=== PATIENT | female | born 2000 | race African-American/Black ===

== ENCOUNTER 2018-04-18 20:54 | Outpatient (CLI) | payer OTHER ==
[2018-04-18] MEDS ORDERED: LACTATED RINGERS 1,000 ML IV ONE ×2 (21:52→22:18)
[2018-04-18] MEDS ORDERED: ONDANSETRON 4 MG/2 ML VIAL IVP ONE (22:19)
[2018-04-18 22:35] LABS: BILIRUBIN,URINE NEGATIVE (NEGATIVE); GLUCOSE, URINE (UA) NEGATIVE (NEGATIVE); KETONES,URINE (UA) NEGATIVE (NEGATIVE); LEUKOCYTE ESTERASE, URINE NEGATIVE (NEGATIVE); NITRITE,URINE NEGATIVE (NEGATIVE); OCCULT BLOOD,URINE NEGATIVE (NEGATIVE); PROTEIN,URINE NEGATIVE (NEGATIVE); UROBILINOGEN,URINE 0.2 (NORMAL) E.U./dL (NORMAL)
[2018-04-18 23:04] LABS: BACTERIA,URINE None Seen /HPF (None Seen); CLARITY,URINE CLEAR (CLEAR); RBC,URINE None Seen /HPF (0-5); SQUAMOUS EPITHELIAL CELL,UR MOD Squamous (<= Few)
[2018-04-18 23:15] VITALS: BP 102/48
== END 2018-04-18 23:25 | disposition home or self-care (01) ==
LOC: WFO 20:54 → FBP 20:58 → WFO 23:25
PROVIDERS: ATTEND Obstetrics & Gynecology
DX: O98.819 Other maternal infectious and parasitic diseases complicating pregnancy, unspecified trimester (principal); A08.4 Viral intestinal infection, unspecified
CPT/HCPCS: 81001; 87210; 96374; 99213; J7120; 87086

== ENCOUNTER 2018-06-11 20:32 | Outpatient (CLI) | payer OTHER ==
[2018-06-11 21:47] LABS: BILIRUBIN,URINE NEGATIVE (NEGATIVE); GLUCOSE, URINE (UA) NEGATIVE (NEGATIVE); KETONES,URINE (UA) NEGATIVE (NEGATIVE); LEUKOCYTE ESTERASE, URINE SMALL (NEGATIVE); NITRITE,URINE NEGATIVE (NEGATIVE); OCCULT BLOOD,URINE NEGATIVE (NEGATIVE); PH,URINE 7.5 PH (5.0-7.5); PROTEIN,URINE NEGATIVE (NEGATIVE); UROBILINOGEN,URINE 0.2 (NORMAL) E.U./dL (NORMAL)
[2018-06-11 21:54] LABS: CLARITY,URINE HAZY (CLEAR); RBC,URINE None Seen /HPF (0-5)
[2018-06-11 21:55] LABS: AMORPHOUS SEDIMENT,UR Marked /LPF; BACTERIA,URINE None Seen /HPF (None Seen); SQUAMOUS EPITHELIAL CELL,UR MOD Squamous (<= Few)
[2018-06-11 22:02] VITALS: BP 123/55
== END 2018-06-11 22:15 | disposition home or self-care (01) ==
LOC: FBP 20:32 → WFO 20:32
PROVIDERS: ATTEND Obstetrics & Gynecology
DX: O99.89 Other specified diseases and conditions complicating pregnancy, childbirth and the puerperium (principal); R10.9 Unspecified abdominal pain; Z3A.26 26 weeks gestation of pregnancy
CPT/HCPCS: 59025; 81001; 82731; 87086; 99213

== ENCOUNTER 2018-06-13 10:10 | Outpatient (CLI) | payer OTHER ==
[2018-06-13 16:58] LABS: MUDS CUTOFF CONCENTRATIONS CUTOFF CONC BELOW:
[2018-06-13 17:26] LABS: AMPHETAMINE SCREEN,URINE NEGATIVE (NEGATIVE); BENZODIAZEPINES SCREEN, URINE NEGATIVE (NEGATIVE); COCAINE SCREEN URINE NEGATIVE (NEGATIVE); METHADONE SCREEN, URINE NEGATIVE (NEGATIVE); METHAMPHETAMINES SCREEN, URINE NEGATIVE (NEGATIVE); OPIATE SCREEN, URINE NEGATIVE (NEGATIVE); OXYCODONE SCREEN, URINE NEGATIVE (NEGATIVE); PROPOXYPHENE SCREEN, URINE NEGATIVE (NEGATIVE); TRICYCLIC ANTIDEPRESSANT,URINE NEGATIVE (NEGATIVE)
== END 2018-06-13 10:11 | disposition home or self-care (01) ==
LOC: LAB.R 10:10
PROVIDERS: ATTEND Obstetrics & Gynecology
DX: Z36.9 Encounter for antenatal screening, unspecified (principal)
CPT/HCPCS: 80306

== ENCOUNTER 2018-06-16 09:15 | Outpatient (CLI) | payer OTHER ==
[2018-06-16 12:27] LABS: HGB - HEMOGLOBIN 12.8 g/dL (12.0-16.0); MEAN CORPUSCULAR HEMOGLOBIN 28.5 pg (27.0-31.0); MEAN CORPUSCULAR VOLUME 81.5 fL (81.0-99.0); MEAN PLATELET VOLUME 8.1 fL (7.9-10.8); RED BLOOD COUNT 4.5 10^6/uL (4.20-5.40); RED CELL DISTRIBUTION WIDTH 13.5 % (12.0-15.0); WHITE BLOOD COUNT 13.3 x10^3/uL (4.8-10.8)
== END 2018-06-16 09:16 | disposition home or self-care (01) ==
LOC: LAB.N 09:15
PROVIDERS: ATTEND Obstetrics & Gynecology
DX: Z34.90 Encounter for supervision of normal pregnancy, unspecified, unspecified trimester (principal)
CPT/HCPCS: 36415; 82950; 85025; 85027; 86850

== ENCOUNTER 2018-08-09 09:34 | Outpatient (CLI) | payer OTHER ==
[2018-08-09 09:54] VITALS: BP 110/69
--- NOTE | 2018-08-09 13:03 | PROVIDER PROGRESS NOTE ---
Subjective - Prog Note Date Prog Note Date: 08/09/18 Prog Note Time: 12:45 - Subjective Subjective: Mrs. Sheila nelson is a 18-year-old -[place] primigravida at 35 weeks gestation who reports regular uterine contractions beginning at 7 AM. She has no suspicion of leaking fluid. She has no signs or symptoms suggestive of preeclampsia. She has no UTI symptoms. Uterus; 35 weeks size vertex presentation; normal resting tone and no palpable contractions. Cervix cervical exam not accomplished due to the lack of pelvic pressure nor contractions. NST accomplished for well-being: Reactive and category 1; baseline 140s- 150s with prerequisite accelerations and no contractions. Assessment: Patient is not in labor and her contractions responded to oral hydration. There are no concerns about well-being due to reactive NST. Plan: Patient was given reassurance and the signs and symptoms of labor reviewed. She will keep her previously scheduled appointment with Dr. Bhatia on 21 August. Objective - Vital Signs/Intake & Output Vital Signs: Vital Signs x48h Temp Pulse Resp BP Pulse Ox 08/09/18 09:53 98.4 F 89 17 110/69 99
== END 2018-08-09 12:50 | disposition home or self-care (01) ==
LOC: WFO 09:34 → FBP 09:35 → WFO 12:50
PROVIDERS: ATTEND Obstetrics & Gynecology
DX: Z34.03 Encounter for supervision of normal first pregnancy, third trimester (principal)
CPT/HCPCS: 59025; 99212

== ENCOUNTER 2018-08-14 10:28 | Outpatient (CLI) | payer OTHER ==
[2018-08-14 10:48] VITALS: BP 121/72
--- NOTE | 2018-08-16 08:01 | PROVIDER PROGRESS NOTE ---
Subjective - Prog Note Date Prog Note Date: 08/14/18 Prog Note Time: 11:00 - Subjective Subjective: Mrs. Farias is a 18-year-old primigravida at 35 weeks and 5 days gestation who reports uterine contractions without suspicion of leaking fluid. She states her uterine area is sore almost all the time. She began to have sensible contractions earlier this morning at about 7:00. A.m. she has no fevers chills recent illness's. There are no signs or symptoms or UTI. There are no signs or symptoms of preeclampsia. Physical examination Patient seems anxious, in attendance Uterus is appropriate size normal resting tone minimal if any contractions palpable External monitor baseline 155/; moderate variability, appropriate 15 x 15 excels to be reactive, no worrisome decelerations; rare rare contractions every 12 minutes or greater on toco when palpating the contractions are minimal intensity Vaginal check: No blood or discharge; Cervical check: Dimple, not truly open; cervix long; station -3; posterior Assessment Patient not in labor but does have significant irritability that is personally distressing to her. We discussed signs and symptoms of labor. Explained though annoying induction cannot be done before 39 weeks unless for medical indications. Plan Patient given reassurance and discharged home
== END 2018-08-14 11:45 | disposition home or self-care (01) ==
LOC: WFO 10:28 → FBP 10:30 → WFO 11:45
PROVIDERS: ATTEND Obstetrics & Gynecology
DX: Z34.03 Encounter for supervision of normal first pregnancy, third trimester (principal)
CPT/HCPCS: 99213

== ENCOUNTER 2018-08-21 08:00 | Outpatient (CLI) | payer OTHER | END 2018-08-21 23:59 | disposition home or self-care (01) | LOC: LAB.R 08:00 | PROVIDERS: ATTEND Nurse Practitioner Obstetrics & Gynecology | DX: Z33.1 Pregnant state, incidental (principal) | CPT/HCPCS: 87797 ==

== ENCOUNTER 2018-08-28 15:02 | Outpatient (CLI) | payer OTHER | END 2018-08-28 15:03 | disposition home or self-care (01) | LOC: LAB.R 15:02 | PROVIDERS: ATTEND Nurse Practitioner Obstetrics & Gynecology | DX: Z33.1 Pregnant state, incidental (principal) | CPT/HCPCS: 87491; 87591 ==

== ENCOUNTER 2019-06-11 09:06 | Emergency (ER) | payer OTHER ==
--- NOTE | 2019-06-11 09:26 | ED Physician Documentation ---
History of Present Illness - Stated complaint Stated Complaint: FEVER/BODY ACHES - Chief complaint Chief Complaint: General - Additonal information Additional information: This is a 19-year-old female who is usually healthy, presents with 3 days of body aches, subjective fever, sore throat, rhinorrhea, cough. She has also had some nausea, but no vomiting. She denies any abdominal pain. No dysuria. She has had exposure to other people with cold symptoms. She got the flu shot last week. Review of Systems Constitutional: denies: Fever Throat: reports: Dental pain / toothache, Sore throat Cardiac: denies: Chest pain / pressure Respiratory: denies: Dyspnea GI: denies: Abdominal Pain : denies: Dysuria PD PAST MEDICAL HISTORY - Past Medical History Cardiovascular: None Respiratory: None Neuro: None GI: GERD Musculoskeletal: None Derm: None - Present Medications Home Medications: Ambulatory Orders Medication Instructions Recorded Confirmed No Known Home Medications 06/11/19 06/11/19 - Allergies Allergies/Adverse Reactions: Allergies Allergy/AdvReac Type Severity Reaction Status Date / Time No Known Drug Allergies Allergy Verified 06/11/19 09:16 - Social History Does the pt smoke?: No Smoking Status: Former smoker PD ED PE NORMAL - Vitals Vital signs reviewed: Yes - General General: Alert and oriented X 3, No acute distress - HEENT HEENT: Atraumatic, Other (Posterior pharynx erythema with some tonsillar edema, no exudate) - Neck Neck: Supple, no meningeal sign - Cardiac Cardiac: RRR, No murmur - Respiratory Respiratory: No respiratory distress, Clear bilaterally - Abdomen Abdomen: Soft, Non tender, Non distended - Derm Derm: Warm and dry - Extremities Extremities: No deformity - Neuro Neuro: Alert and oriented X 3 - Psych Psych: Normal mood, Normal affect Results - Vitals Vitals: Vital Signs - 24 hr 06/11/19 06/11/19 09:15 09:56 Temperature 37.2 C 37.6 C H Heart Rate 85 77 Respiratory 20 18 Rate Blood Pressure 133/71 H 120/78 O2 Saturation 98 97 Oxygen O2 Source Room air - Labs Labs: Laboratory Tests 06/11/19 10:00 Influenza A (Rapid) Negative Influenza B (Rapid) Negative PD MEDICAL DECISION MAKING - ED course Complexity details: considered differential (URI, viral syndrome, influenza) ED course: Patient is very well-appearing, with unremarkable vital signs. Her symptoms are consistent with a viral syndrome. Rapid flu negative. I discussed supportive care, PCP follow up and return precautions and patient was discharged home in good conditions. Departure - Departure Disposition: Home, Self Care Clinical Impression: Viral URI Condition: Good Instructions: ED Viral Syndrome Comments: You appear to have a viral infection today, your flu test was negative, you may take Tylenol 650 mg every 6 hours and ibuprfoen 600 mg every 6 hours as needed for fever and discomfort. Drink plenty of fluids and get lots of rest. Make sure that people in your household are washing their hands frequently to help prevent the spread of infection. If you are having worsening symptoms return to the emergency department. Otherwise please follow-up with your primary care provider. Discharge Date/Time: 06/11/19 10:49
[2019-06-11 09:57] VITALS: BP 120/78
== END 2019-06-11 10:49 | disposition home or self-care (01) ==
LOC: ED 09:06
DX: J06.9 Acute upper respiratory infection, unspecified (principal); Z87.891 Personal history of nicotine dependence
CPT/HCPCS: 87275; 87276; 99282; 99283

== ENCOUNTER 2019-08-10 08:10 | Emergency (ER) | payer OTHER ==
[2019-08-10 08:20] VITALS: BP 132/85
[2019-08-10 08:38] LABS: RAPID STREP SCREEN Negative (Negative)
[2019-08-10] MEDS ORDERED: DEXAMETHASONE 10 MG/ML VIAL PO STA (08:56)
[2019-08-10] MEDS ORDERED: CHERRY SYRUP 10 ML UDC PO ONE (08:56)
--- NOTE | 2019-08-10 09:00 | ED Physician Documentation ---
History of Present Illness - Stated complaint Stated Complaint: SORE THROAT - Chief complaint Chief Complaint: Heent - Additonal information Additional information: This is a 19-year-old female who is usually healthy who presents with sore t hroat. Patient has had a sore throat for several days, she also has had a bit of cough, and some irritation of her bilateral eyes. She has had some mild nasal congestion but no rhinorrhea. Her sore throat has progressed to the point where it hurts to talk and to swallow, so she sought care today. She has had a fever several days ago, which was controlled well with Tylenol. No chest pain, abdominal pain, shortness of breath. She has had strep throat multiple times. Review of Systems Constitutional: reports: Fever Nose: reports: Congestion Throat: reports: Sore throat PD PAST MEDICAL HISTORY - Past Medical History Past Medical History: Yes Cardiovascular: None Respiratory: None Neuro: None GI: GERD Musculoskeletal: None Derm: None - Present Medications Home Medications: Ambulatory Orders Medication Instructions Recorded Confirmed Amoxicillin 500 mg PO BID #20 capsule 08/10/19 - Allergies Allergies/Adverse Reactions: Allergies Allergy/AdvReac Type Severity Reaction Status Date / Time No Known Drug Allergies Allergy Verified 08/10/19 08:20 - Social History Does the pt smoke?: No Smoking Status: Never smoker PD ED PE NORMAL - General General: Alert and oriented X 3 - HEENT HEENT: PERRL, Other (Posterior pharynx is erythematous, tonsils are 3+, enlarged and symmetric, no exudate. Uvula is midline. Conjunctiva mildly injected, there is no exudate from the eyes, pupils are normal in appearance. EOMI.) - Neck Neck: Other (Anterior cervical lymphadenopathy present) - Cardiac Cardiac: RRR - Respiratory Respiratory: No respiratory distress, Clear bilaterally - Abdomen Abdomen: Non distended - Extremities Extremities: No deformity - Neuro Neuro: Alert and oriented X 3 Results - Vitals Vitals: Vital Signs - 24 hr 08/10/19 08:18 Temperature 37.3 C Heart Rate 92 Respiratory 16 Rate Blood Pressure 132/85 H O2 Saturation 98 Oxygen O2 Source Room air - Labs Labs: Laboratory Tests 08/10/19 08:20 Group A Strep Rapid Negative PD MEDICAL DECISION MAKING - ED course ED course: Patient is well-appearing on exam, she does have edematous tonsils, cervical lym phadenopathy, fever, and no significant cough, making her high risk for strep throat. She does have some mild conjunctival irritation which could be viral in nature, or related to allergies. She has had no significant amount of discharge from her eyes, no signs of bacterial conjunctivitis at this time. Rapid strep was negative today, but given her constellation of symptoms after discussion with the patient we elected to start amoxicillin, she can check in on the results of her throat culture in 48 hours and if she is improving and her throat culture is negative she can stop antibiotics at this time. Patient is well- appearing, tolerating p.o., and without signs of IT COMMUNICATIONS MANAGER or more serious infection at this time. I discussed return precautions with the patient, and also discussed supportive care in addition to amoxicillin. PCP follow-up was also reviewed. Patient agrees this plan and was discharged home. Departure - Departure Disposition: 01 Home, Self Care Clinical Impression: Pharyngitis Qualifiers: Pharyngitis/tonsillitis etiology: unspecified etiology Qualified Code(s): J02.9 - Acute pharyngitis, unspecified Condition: Good Instructions: ED Strep Pharyngitis Poss Prescriptions: Amoxicillin 500 mg PO BID #20 capsule Comments: Your rapid strep test was negative today, though we have had a number of false negatives recently. I am starting you on amoxicillin which is an antibiotic that will treat strep throat. We will have the results of the culture back in the next 2 days, you may call to check on the results, if it is negative and you are feeling better you may stop the antibiotic. If having worsening symptoms such as inability to swallow, shortness of breath, or other concerning symptoms please return the emergency department. You may take Tylenol and ibuprofen for discomfort. Forms: Activity restrictions Discharge Date/Time: 08/10/19 09:08
== END 2019-08-10 09:08 | disposition home or self-care (01) ==
LOC: ED 08:10
DX: J02.9 Acute pharyngitis, unspecified (principal)
CPT/HCPCS: 87070; 87430; 99283; 99284; A9270

== ENCOUNTER 2019-09-04 11:34 | Emergency (ER) | payer OTHER ==
[2019-09-04] MEDS ORDERED: DEXAMETHASONE 10 MG/ML VIAL PO STA (12:41)
[2019-09-04] MEDS ORDERED: CHERRY SYRUP 10 ML UDC PO ONE (12:41)
[2019-09-04] MEDS ORDERED: cephALEXin 250 MG CAPSULE PO STA (12:41)
[2019-09-04 12:42] LABS: RAPID STREP SCREEN POSITIVE (Negative)
--- NOTE | 2019-09-04 12:43 | ED Physician Documentation ---
History of Present Illness - Stated complaint Stated Complaint: SORE THROAT - Chief complaint Chief Complaint: Heent - History obtained from History obtained from: Patient - History of Present Illness Timing: Last night Pain level max: 6 Pain level now: 6 - Additonal information Additional information: 19-year-old female states that she started to develop fevers and chills last night. Awoke this morning with a sore throat with white patches on her tonsils. No vomiting. No cough. No congestion. Worse with swallowing. Nothing makes it better. She is not , breast-feeding or trying to become . Has not taken anything this morning. She was recently on amoxicillin for a viral pharyngitis. 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 : None HEENT: None Psych: None Musculoskeletal: None Derm: None - Past Surgical History Past Surgical History: No - Present Medications Home Medications: Ambulatory Orders Medication Instructions Recorded Confirmed Amoxicillin 500 mg PO BID #20 capsule 08/10/19 Cephalexin [Keflex] 500 mg PO Q6H #40 capsule 09/04/19 - Allergies Allergies/Adverse Reactions: Allergies Allergy/AdvReac Type Severity Reaction Status Date / Time No Known Drug Allergies Allergy Verified 09/04/19 11:41 - Social History Does the pt smoke?: No Smoking Status: Never smoker Does the pt drink ETOH?: No Does the pt have substance abuse?: No - Immunizations Immunizations are current?: Yes - POLST Patient has POLST: No PD ED PE NORMAL - Vitals Vital signs reviewed: Yes - General General: Alert and oriented X 3, No acute distress, Well developed/nourished - HEENT HEENT: PERRL, Ears normal, Moist mucous membranes, Other (Posterior pharyngeal erythema with tonsillar exudates. Uvula midline. Normal phonation. No trismus.) - Neck Neck: Supple, no meningeal sign, Other (Shotty anterior lymphadenopathy) - Cardiac Cardiac: RRR, Strong equal pulses - Respiratory Respiratory: No respiratory distress, Clear bilaterally - Abdomen Abdomen: Soft, Non tender, Non distended - Derm Derm: Warm and dry - Extremities Extremities: No edema - Neuro Neuro: Alert and oriented X 3 - Psych Psych: Normal mood, Normal affect Results - Vitals Vitals: Vital Signs - 24 hr 09/04/19 11:39 Temperature 36.1 C L Heart Rate 92 Respiratory 16 Rate Blood Pressure 123/68 O2 Saturation 96 Oxygen O2 Source Room air - Labs Labs: Laboratory Tests 09/04/19 11:45 Group A Strep Rapid POSITIVE H PD MEDICAL DECISION MAKING - ED course Complexity details: reviewed old records, reviewed results, considered differential, d/w patient ED course: Patient with what appears to be strep pharyngitis. Will place on Keflex that she was recently on amoxicillin. Given dexamethasone as well. No evidence of peritonsillar or retropharyngeal abscess. Patient counseled regarding signs and symptoms for which I believe and urgent re-evaluation would be necessary. Patient with good understanding of and agreement to plan and is comfortable going home at this time This document was made in part using voice recognition software. While efforts are made to proofread this document, sound alike and grammatical errors may occur. Departure - Departure Disposition: 01 Home, Self Care Clinical Impression: Strep pharyngitis Condition: Good Instructions: ED Strep Pharyngitis Conf Follow-Up: Tres Shelton MD [Primary Care Provider] - Within 1 week Prescriptions: Cephalexin [Keflex] 500 mg PO Q6H #40 capsule Comments: Take all antibiotics until gone. Return if you worsen. Follow-up with your doctor in 1 week if not better. You can use Motrin or Tylenol as needed for pain at home. Drink plenty of fluids as well.
[2019-09-04 12:58] VITALS: BP 125/67
== END 2019-09-04 12:58 | disposition home or self-care (01) ==
LOC: ED 11:34
DX: J02.0 Streptococcal pharyngitis (principal)
CPT/HCPCS: 87430; 99283; 99284; A9270

== ENCOUNTER 2022-04-17 13:12 | Outpatient (CLI) | payer OTHER | END 2022-04-17 13:13 | disposition EMS.NT | LOC: EMS 13:12 | DX: R11.2 Nausea with vomiting, unspecified (principal); R10.84 Generalized abdominal pain ==

== ENCOUNTER 2022-04-17 13:56 | Emergency (ER) | payer OTHER ==
--- NOTE | 2022-04-17 14:35 | ED Physician Documentation ---
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 She saw my partner here on 17 March for jaundice. It was preceded by nausea and vomiting. She was a modest drinker at the time and denied Tylenol or acetaminophen use. No mushrooms, and she was on no meds. Work-up here at that time included chemistries notable for a bilirubin of 11, AST 1750, ALT 1266, and alkaline ph osphatase of 270. Her INR on that date was 1.3. Negative Tylenol and drug screens at that time, and hepatitis testing was negative as was a monoscreen. [place], and she talk to her bi analyst but no specific or other work-up has been done since that date. The last few days she has been vomiting more severely. She has some mild back pain but no abdominal pain. She feels like her jaundice is the same as it was on that date. There is no family history of liver disease. She has not had any alcohol since that date and also has not had any Tylenol since then. 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 : None HEENT: None Psych: None Musculoskeletal: None Derm: None - Past Surgical History Past Surgical History: No - Present Medications Home Medications: Ambulatory Orders Medication Instructions Recorded Confirmed No Known Home Medications 03/17/22 03/17/22 - Allergies Allergies/Adverse Reactions: Allergies Allergy/AdvReac Type Severity Reaction Status Date / Time No Known Drug Allergies Allergy Verified 04/17/22 14:07 - Social History Does the pt smoke?: No Smoking Status: Never smoker Does the pt drink ETOH?: No Does the pt have substance abuse?: No - Immunizations Immunizations are current?: Yes - POLST Patient has POLST: No PD ED PE NORMAL - Vitals Vital signs reviewed: Yes - General General: Alert and oriented X 3, Other (Retching and vomiting) - HEENT HEENT: PERRL, EOMI, Other (She has scleral icterus without Hackett Dong rings.) - Neck Neck: Supple, no meningeal sign, No bony TTP - Cardiac Cardiac: RRR, No murmur - Respiratory Respiratory: No respiratory distress, Clear bilaterally - Abdomen Abdomen: Normal bowel sounds, Soft, Non tender - Back Back: No CVA TTP, No spinal TTP - Derm Derm: Normal color, Warm and dry - Extremities Extremities: No edema, No calf tenderness / cord - Neuro Neuro: Alert and oriented X 3, Normal speech Results - Vitals Vitals: Vital Signs - 24 hr 04/17/22 04/17/22 04/17/22 13:59 14:06 16:06 Temperature 36.5 C 36.5 C Heart Rate 121 H 121 H 111 H Respiratory 18 18 20 Rate Blood Pressure 139/65 H 139/65 H 142/73 H O2 Saturation 100 100 100 Oxygen O2 Source Room air - Labs Labs: Laboratory Tests 04/17/22 04/17/22 04/17/22 14:50 14:50 14:50 WBC 12.8 H RBC 5.17 Hgb 14.8 Hct 42.2 MCV 81.6 MCH 28.6 MCHC 35.1 RDW 19.0 H Plt Count 175 MPV 9.6 Neut # (Auto) Not Reportable Lymph # (Auto) Not Reportable [place] # (Auto) Not Reportable Eos # (Auto) Not Reportable Baso # (Auto) Not Reportable Absolute Nucleated RBC Not Reportable Total Counted 100 Band Neuts % (Manual) 1 Reactive Lymphs % (Man) 4 Abnorm Lymph % (Manual) 0 Nucleated RBC % Not Reportable Neutrophils # (Manual) 10.2 H Lymphocytes # (Manual) 1.5 Monocytes # (Manual) 1.0 Eosinophils # (Manual) 0.0 Basophils # (Manual) 0.0 Differential Comment MANUAL DIFFERENTIAL Platelet Estimate NORMAL (130-450,000) Platelet Morphology NORMAL APPEARANCE RBC Morph Micro Appear 2+ ANISOCYTOSIS PT 21.7 H INR 2.0 H Sodium 134 L Potassium 3.4 L Chloride 104 Carbon Dioxide 22 Anion Gap 8.0 BUN 7 Creatinine 0.8 Estimated GFR (MDRD) 107 Glucose 82 Calcium 9.0 Total Bilirubin 15.4 H AST 1505 H ALT 868 H Alkaline Phosphatase 527 H Ammonia Total Protein 6.7 Albumin 2.3 L Globulin 4.3 H Albumin/Globulin Ratio 0.5 L Urine Color Urine Clarity Urine pH Ur Specific [place] Urine Protein Urine Glucose (UA) Urine Ketones Urine Occult Blood Urine Nitrite Urine Bilirubin Urine Urobilinogen Ur Leukocyte Esterase Urine RBC Urine WBC Ur Squamous Epith Cells Urine Bacteria Urine Casts Ur Microscopic Review Urine Culture Comments Urine HCG, Qual Nasal Adenovirus (PCR) Nasal B. parapertussis DNA (PCR) Nasal Coronavir 229E PCR Nasal Coronavir HKU1 PCR Nasal Coronavir NL63 PCR Nasal Coronavir OC43 PCR Nasal Enterovir/Rhinovir PCR Nasal Influenza B PCR Nasal Influenza A PCR Nasal Parainfluen 1 PCR Nasal Parainfluen 2 PCR Nasal Parainfluen 3 PCR Nasal Parainfluen 4 PCR Nasal RSV (PCR) Nasal B.pertussis DNA PCR Nasal C.pneumoniae (PCR) Chadd Human Metapneumo PCR Nasal M.pneumoniae (PCR) Nasal SARS-CoV-2 (PCR) Ethyl Alcohol < 5.0 04/17/22 04/17/22 04/17/22 14:50 16:05 16:50 WBC RBC Hgb Hct MCV MCH MCHC RDW Plt Count MPV Neut # (Auto) Lymph # (Auto) [place] # (Auto) Eos # (Auto) Baso # (Auto) Absolute Nucleated RBC Total Counted Band Neuts % (Manual) Reactive Lymphs % (Man) Abnorm Lymph % (Manual) Nucleated RBC % Neutrophils # (Manual) Lymphocytes # (Manual) Monocytes # (Manual) Eosinophils # (Manual) Basophils # (Manual) Differential Comment Platelet Estimate Platelet Morphology RBC Morph Micro Appear PT INR Sodium Potassium Chloride Carbon Dioxide Anion Gap BUN Creatinine Estimated GFR (MDRD) Glucose Calcium Total Bilirubin AST ALT Alkaline Phosphatase Ammonia 35.4 H Total Protein Albumin Globulin Albumin/Globulin Ratio Urine Color DARK YELLOW Urine Clarity HAZY Urine pH 6.0 Ur Specific [place] 1.025 Urine Protein NEGATIVE Urine Glucose (UA) 100 H Urine Ketones NEGATIVE Urine Occult Blood LARGE H Urine Nitrite NEGATIVE Urine Bilirubin LARGE H Urine Urobilinogen 1 (NORMAL) Ur Leukocyte Esterase NEGATIVE Urine RBC 6-10 H Urine WBC 4-5 Ur Squamous Epith Cells MOD Squamous H Urine Bacteria Moderate H Urine Casts 3-5 Hyaline Casts Ur Microscopic Review INDICATED Urine Culture Comments NOT INDICATED Urine HCG, Qual Nasal Adenovirus (PCR) NOT DETECTED Nasal B. parapertussis DNA (PCR) NOT DETECTED Nasal Coronavir 229E PCR NOT DETECTED Nasal Coronavir HKU1 PCR NOT DETECTED Nasal Coronavir NL63 PCR NOT DETECTED Nasal Coronavir OC43 PCR NOT DETECTED Nasal Enterovir/Rhinovir PCR NOT DETECTED Nasal Influenza B PCR NOT DETECTED Nasal Influenza A PCR NOT DETECTED Nasal Parainfluen 1 PCR NOT DETECTED Nasal Parainfluen 2 PCR NOT DETECTED Nasal Parainfluen 3 PCR NOT DETECTED Nasal Parainfluen 4 PCR NOT DETECTED Nasal RSV (PCR) NOT DETECTED Nasal B.pertussis DNA PCR NOT DETECTED Nasal C.pneumoniae (PCR) NOT DETECTED Chadd Human Metapneumo PCR NOT DETECTED Nasal M.pneumoniae (PCR) NOT DETECTED Nasal SARS-CoV-2 (PCR) NOT DETECTED Ethyl Alcohol 04/17/22 16:50 WBC RBC Hgb Hct MCV MCH MCHC RDW Plt Count MPV Neut # (Auto) Lymph # (Auto) [place] # (Auto) Eos # (Auto) Baso # (Auto) Absolute Nucleated RBC Total Counted Band Neuts % (Manual) Reactive Lymphs % (Man) Abnorm Lymph % (Manual) Nucleated RBC % Neutrophils # (Manual) Lymphocytes # (Manual) Monocytes # (Manual) Eosinophils # (Manual) Basophils # (Manual) Differential Comment Platelet Estimate Platelet Morphology RBC Morph Micro Appear PT INR Sodium Potassium Chloride Carbon Dioxide Anion Gap BUN Creatinine Estimated GFR (MDRD) Glucose Calcium Total Bilirubin AST ALT Alkaline Phosphatase Ammonia Total Protein Albumin Globulin Albumin/Globulin Ratio Urine Color Urine Clarity Urine pH Ur Specific [place] Urine Protein Urine Glucose (UA) Urine Ketones Urine Occult Blood Urine Nitrite Urine Bilirubin Urine Urobilinogen Ur Leukocyte Esterase Urine RBC Urine WBC Ur Squamous Epith Cells Urine Bacteria Urine Casts Ur Microscopic Review Urine Culture Comments Urine HCG, Qual NEGATIVE Nasal Adenovirus (PCR) Nasal B. 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 She has not been drinking or taking any Tylenol since her prior visit, differential diagnosis includes occult alcoholic liver disease, autoimmune hepatitis, viral etiologies not previously tested for (she had a negative viral hepatitis panel at her last visit) or Kevin's disease, but she does not have Hackett Dong rings. Her labs have worsened somewhat in the interim and [facility] was called for transfer a little before 4 PM but they would not consider transfer until her COVID test was done. Subsequently her COVID test did come back negative, I spoke with the resident on-call there for medicine and she is accepted to [facility] by his attending, Dr. Tao Lange. Departure - Departure Disposition: 02 Transfer Acute Care Hosp Clinical Impression: Acute hepatitis Condition: Serious
[2022-04-17 15:02] LABS: BASOPHILS % (AUTO) 0.5 %; EOSINOPHILS % (AUTO) 0.2 %; HCT - HEMATOCRIT 42.2 % (37.0-47.0); HGB - HEMOGLOBIN 14.8 g/dL (12.0-16.0); LYMPHOCYTES % (AUTO) 12.1 %; MEAN CORPUSCULAR HEMOGLOBIN 28.6 pg (27.0-31.0); MEAN CORPUSCULAR HGB CONC 35.1 g/dL (32.0-36.0); MEAN CORPUSCULAR VOLUME 81.6 fL (81.0-99.0); MEAN PLATELET VOLUME 9.6 fL (7.9-10.8); MONOCYTES % (AUTO) 12.1 %; NEUTROPHILS % (AUTO) 74.2 %; PLT - PLATELET COUNT 175 10^3/uL (130-450); RED BLOOD COUNT 5.17 10^6/uL (4.20-5.40); WHITE BLOOD COUNT 12.8 x10^3/uL (4.8-10.8)
[2022-04-17] MEDS: SODIUM CHLORIDE 0.9% 1,000 ML IV STA (15:03)
[2022-04-17] MEDS: ONDANSETRON 4 MG/2 ML VIAL IVP STA (15:03)
[2022-04-17 15:05] LABS: ABNORMAL LYMPHS % (MANUAL) 0 %
[2022-04-17 15:16] LABS: ALBUMIN 2.3 g/dL (3.2-5.5); ALBUMIN/GLOBULIN RATIO 0.5 (1.0-2.2); ALKALINE PHOSPHATASE 527 IU/L (42-121); ALT ALANINE AMINOTRANSFERASE 868 IU/L (10-60); AST ASPARTATE AMINOTRANSFERASE 1505 IU/L (10-42); BILIRUBIN,TOTAL 15.4 mg/dL (0.2-1.0); BUN - BLOOD UREA NITROGEN 7 mg/dL (6-20); CARBON DIOXIDE - CO2 22 mmol/L (21-32); CHLORIDE 104 mmol/L (101-111); CREATININE 0.8 mg/dL (0.4-1.0); ETOH - ETHANOL < 5.0 mg/dL; GFR - MDRD 107 (>89); GLUCOSE 82 mg/dL (70-100); POTASSIUM 3.4 mmol/L (3.5-5.0); SODIUM 134 mmol/L (135-145); TOTAL PROTEIN 6.7 g/dL (6.7-8.2)
[2022-04-17 15:29] LABS: PT - PROTHROMBIN TIME 21.7 secs (9.9-12.6)
[2022-04-17 15:34] LABS: BAND NEUTROPHILS % (MANUAL) 1 %; LYMPHOCYTES # (MANUAL) 1.5 10^3/uL (1.5-3.5); LYMPHOCYTES % (MANUAL) 8 %; NEUTROPHILS # (MANUAL) 10.2 10^3/uL (1.5-6.6); REACTIVE LYMPHS % (MANUAL) 4 %
[2022-04-17 15:35] LABS: DIFFERENTIAL COMMENT MANUAL DIFFERENTIAL; PLATELET ESTIMATE, MANUAL NORMAL (130-450,000) (NORMAL); PLATELET MORPHOLOGY NORMAL APPEARANCE (NORMAL); RBC MORPHOLOGY (MULTIPLE) 2+ ANISOCYTOSIS (NORMAL)
[2022-04-17] MEDS: IBUPROFEN 600 MG TABLET PO STA (16:02)
[2022-04-17 16:59] LABS: BILIRUBIN,URINE LARGE (NEGATIVE); CLARITY,URINE HAZY (CLEAR); GLUCOSE, URINE (UA) 100 mg/dL (NEGATIVE); ICTOTEST,URINE POSITIVE; KETONES,URINE (UA) NEGATIVE (NEGATIVE); LEUKOCYTE ESTERASE, URINE NEGATIVE (NEGATIVE); NITRITE,URINE NEGATIVE (NEGATIVE); OCCULT BLOOD,URINE LARGE (NEGATIVE); PROTEIN,URINE NEGATIVE (NEGATIVE); UROBILINOGEN,URINE 1 (NORMAL) E.U./dL (NORMAL)
[2022-04-17 17:00] LABS: HCG UR QUAL NEGATIVE
[2022-04-17 17:03] LABS: CORONAVIRUS 229E-RESP PCR NOT DETECTED; CORONAVIRUS HKU1-RESP PCR NOT DETECTED; CORONAVIRUS NL63-RESP PCR NOT DETECTED; CORONAVIRUS OC43-RESP PCR NOT DETECTED; HUMAN METAPNEUMOVIRUS NOT DETECTED; RHINOVIRUS/ENTEROVIRUS NOT DETECTED; SARS-CoV-2 -RESP PCR PANEL NOT DETECTED
[2022-04-17 17:04] LABS: B. PARAPERTUSSIS- RESP PCR PAN NOT DETECTED; B. PERTUSSIS- RESP PCR PANEL NOT DETECTED; C. PNEUMONIAE- RESP PCR PANEL NOT DETECTED; INFLUENZA A- RESP PCR PANEL NOT DETECTED; INFLUENZA B - RESP PCR PANEL NOT DETECTED; M. PNEUMONIAE- RESP PCR PANEL NOT DETECTED; PARAINFLUENZA VIRUS 1 NOT DETECTED; PARAINFLUENZA VIRUS 2 NOT DETECTED; PARAINFLUENZA VIRUS 3 NOT DETECTED; PARAINFLUENZA VIRUS 4 NOT DETECTED; RSV- RESP PCR PANEL NOT DETECTED
[2022-04-17 17:19] LABS: BACTERIA,URINE Moderate /HPF (None Seen); CASTS, URINE 3-5 Hyaline Casts /LPF; SQUAMOUS EPITHELIAL CELL,UR MOD Squamous (<= Few)
[2022-04-17] MEDS: HYDROmorphone 1 MG/ML CARPUJECT IVP STA (17:32)
[2022-04-17 18:51] VITALS: BP 118/46
== END 2022-04-17 15:15 | disposition short-term general hospital (02) ==
LOC: EDUNIT# → ED 13:56
DX: B17.9 Acute viral hepatitis, unspecified (principal); Z20.822 Contact with and (suspected) exposure to COVID-19
CPT/HCPCS: 36415; 80053; 80320; 81001; 81025; 82140; 82390; 85025; 85610; 87633; 96374; 99284; 99285; A9270; J1170; 81003; 87086

== ENCOUNTER 2022-05-28 19:24 | Emergency (ER) | payer OTHER ==
--- NOTE | 2022-05-28 20:31 | ED Physician Documentation ---
PD HPI ABD PAIN - Stated complaint Stated Complaint: WEAKNESS/SOA/TIRED - Chief complaint Chief Complaint: General - History obtained from History obtained from: Patient - History of Present Illness Timing - onset: How many days ago (3-4) Timing - duration: Days (3-4) Timing - details: Gradual onset (feeling malaise, weakness, dyspnea/orthopnea, and generally tired for few days. Symptoms c/w flare of her hepatitis so is concerned. No URI symptoms per se. Having RUQ area pain c/w hepatic inflammation since March.), Still present Quality: Cramping, Aching Location: RUQ Improved by: Laying still. No: BM Worsened by: Eating. No: Breathing Associated symptoms: Nausea, Loss of appetite, Other (weight gain with edema increasingly over weeks, more notable the past week.). No: Fever, Vomiting, Diarrhea, Dysuria Similar symptoms before: Diagnosis (autoimmune hepatitis since March with surges of symptoms. Currently on Prednisone 60 mg daily for past 3 weeks.) Recently seen: Admitted ([facility] a month ago and there for few days. Dx with autoimmune hepatitis. 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 denies: Fever, Chills Nose: denies: Rhinorrhea / runny nose, Congestion Throat: denies: Sore throat Respiratory: denies: Cough GI: reports: Abdominal Pain, Nausea. denies: Vomiting, Diarrhea Skin: denies: Rash, Lesions Musculoskeletal: reports: Extremity swelling Neurologic: reports: Generalized weakness, Headache (frontal). 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 : None HEENT: None Psych: None Musculoskeletal: None Derm: None - Past Surgical History Past Surgical History: No - Present Medications Home Medications: Ambulatory Orders Medication Instructions Recorded Confirmed Furosemide [Lasix] 40 mg PO DAILY 10 Days #10 tablet 05/28/22 - Allergies Allergies/Adverse Reactions: Allergies Allergy/AdvReac Type Severity Reaction Status Date / Time No Known Drug Allergies Allergy Verified 05/28/22 19:45 - Social History Does the pt smoke?: No Smoking Status: Never smoker Does the pt drink ETOH?: No Does the pt have substance abuse?: No - Immunizations Immunizations are current?: Yes - POLST Patient has POLST: No PD ED PE NORMAL - Vitals Vital signs reviewed: Yes - General General: Alert and oriented X 3, No acute distress, Well developed/nourished, Other (general edema including face c/w steroids. ) - HEENT HEENT: PERRL, EOMI (mildly icteric) - Neck Neck: Supple, no meningeal sign, No adenopathy - Cardiac Cardiac: RRR, No murmur - Respiratory Respiratory: Clear bilaterally - Abdomen Abdomen: Soft, Non tender, Other (no shifting dullness to percussion. No distension to suggest ascites. ) - Back Back: No CVA TTP - Derm Derm: Normal color, Warm and dry, No rash - Extremities Extremities: No tenderness to palpate, No calf tenderness / cord, Other (2+ edema in both legs/ankles, up to thighs. General anasarca of hands/face as well. ) - Neuro Neuro: Alert and oriented X 3, No motor deficit, No sensory deficit, Normal speech Results - Vitals Vitals: Vital Signs - 24 hr 05/28/22 05/28/22 05/28/22 19:35 22:44 22:48 Temperature 36.6 C Heart Rate 118 H 86 78 Respiratory 18 16 18 Rate Blood Pressure 148/91 H 130/80 O2 Saturation 99 100 99 05/28/22 23:12 Temperature Heart Rate 70 Respiratory 18 Rate Blood Pressure 127/81 H O2 Saturation 100 Oxygen O2 Source Room air - Labs Labs: Laboratory Tests 05/28/22 05/28/22 05/28/22 20:52 20:52 20:52 WBC 12.1 H RBC 4.64 Hgb 13.6 Hct 39.9 MCV 86.0 MCH 29.3 MCHC 34.1 RDW 21.3 H Plt Count 219 MPV 9.8 Neut # (Auto) 10.2 H Lymph # (Auto) 0.8 L [place] # (Auto) 0.8 Eos # (Auto) 0.0 Baso # (Auto) 0.0 Absolute Nucleated RBC 0.03 Nucleated RBC % 0.2 Manual Slide Review Indicated WBC Morphology NORMAL APPEARANCE Platelet Estimate NORMAL (130-450,000) Platelet Morphology NORMAL APPEARANCE RBC Morph Micro Appear 1+ SCHISTOCYTES ESR 7 PT INR Sodium 136 Potassium 4.3 Chloride 106 Carbon Dioxide 25 Anion Gap 5.0 L BUN 15 Creatinine 0.8 Estimated GFR (MDRD) 107 Glucose 109 H Calcium 8.5 Total Bilirubin 7.5 H AST 270 H ALT 359 H Alkaline Phosphatase 414 H Total Protein 5.9 L Albumin 2.6 L Globulin 3.3 Albumin/Globulin Ratio 0.8 L Lipase 59 H Nasal Adenovirus (PCR) Nasal B. parapertussis DNA (PCR) Nasal Coronavir 229E PCR Nasal Coronavir HKU1 PCR Nasal Coronavir NL63 PCR Nasal Coronavir OC43 PCR Nasal Enterovir/Rhinovir PCR Nasal Influenza B PCR Nasal Influenza A PCR Nasal Parainfluen 1 PCR Nasal Parainfluen 2 PCR Nasal Parainfluen 3 PCR Nasal Parainfluen 4 PCR Nasal RSV (PCR) Nasal B.pertussis DNA PCR Nasal C.pneumoniae (PCR) Chadd Human Metapneumo PCR Nasal M.pneumoniae (PCR) Nasal SARS-CoV-2 (PCR) 05/28/22 05/28/22 20:52 20:53 WBC RBC Hgb Hct MCV MCH MCHC RDW Plt Count MPV Neut # (Auto) Lymph # (Auto) [place] # (Auto) Eos # (Auto) Baso # (Auto) Absolute Nucleated RBC Nucleated RBC % Manual Slide Review WBC Morphology Platelet Estimate Platelet Morphology RBC Morph Micro Appear ESR PT 16.2 H INR 1.5 H Sodium Potassium Chloride Carbon Dioxide Anion Gap BUN Creatinine Estimated GFR (MDRD) Glucose Calcium Total Bilirubin AST ALT Alkaline Phosphatase Total Protein Albumin Globulin Albumin/Globulin Ratio Lipase Nasal Adenovirus (PCR) NOT DETECTED Nasal B. parapertussis DNA (PCR) NOT DETECTED Nasal Coronavir 229E PCR NOT DETECTED Nasal Coronavir HKU1 PCR NOT DETECTED Nasal Coronavir NL63 PCR NOT DETECTED Nasal Coronavir OC43 PCR NOT DETECTED Nasal Enterovir/Rhinovir PCR NOT DETECTED Nasal Influenza B PCR NOT DETECTED Nasal Influenza A PCR NOT DETECTED Nasal Parainfluen 1 PCR NOT DETECTED Nasal Parainfluen 2 PCR NOT DETECTED Nasal Parainfluen 3 PCR NOT DETECTED Nasal Parainfluen 4 PCR NOT DETECTED Nasal RSV (PCR) NOT DETECTED Nasal B.pertussis DNA PCR NOT DETECTED Nasal C.pneumoniae (PCR) NOT DETECTED Chadd Human Metapneumo PCR NOT DETECTED Nasal M.pneumoniae (PCR) NOT DETECTED Nasal SARS-CoV-2 (PCR) NOT DETECTED PD MEDICAL DECISION MAKING - ED course Complexity details: reviewed results (similar to most recent outpt labs from last week. ), considered differential (can eval for flare of the hepatitis. Other consideration is other viral illness now, enough edema now for dyspnea/fatigue/malaise, renal insuff, electrolyte abnormal, among other things. 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 Valladares at [place]. Says labs are c/w most recent outpt (slightly better actually). Presume edema from steroids and okay to Rx diuretic short term. He will contact pt Tuesday. ) Departure - Departure Disposition: Home, Self Care Clinical Impression: Autoimmune hepatitis treated with steroids, Generalized edema Condition: Stable Record reviewed to determine appropriate education?: Yes Follow-Up: OSIRIS DELGADO III, MD [Primary Care Provider] - Prescriptions: Furosemide [Lasix] 40 mg PO DAILY 10 Days #10 tablet Comments: Your bilirubin and liver enzymes sound similar range to your most recent ones. Dr. Valladares says your AST and ALT are actually slightly improved. Your kidney function appears good. Your INR is 1.5. At this point does not appear to be a worsening of your hepatitis. Continue with your current steroids and medications. Your viral respiratory panel is negative for the more notable viruses such as enterovirus, flu, RSV, COVID. It is possible you may have another type of virus that is causing some of your acute weakness and symptoms. You do have moderate amount of generalized edema, presumed related to the steroid fluid retention. We can treat this with furosemide diuretic daily for the next 7 to 10 days. I did talk with your lubricating engineer about it and he is in approval. Dr. Valladares says he will contact you Tuesday morning around 11 by phone to update on how you are doing and discuss any medication changes. Return to the ER sooner if worse. Discharge Date/Time: 05/28/22 23:13
[2022-05-28] MEDS ORDERED: FUROSEMIDE 40 MG/4 ML VIAL IVP STA (20:48)
[2022-05-28 20:58] LABS: BASOPHILS % (AUTO) 0.2 %; HCT - HEMATOCRIT 39.9 % (37.0-47.0); HGB - HEMOGLOBIN 13.6 g/dL (12.0-16.0); LYMPHOCYTES # (AUTO) 0.8 10^3/uL (1.5-3.5); MEAN CORPUSCULAR HEMOGLOBIN 29.3 pg (27.0-31.0); MEAN CORPUSCULAR HGB CONC 34.1 g/dL (32.0-36.0); MEAN PLATELET VOLUME 9.8 fL (7.9-10.8); MONOCYTES # (AUTO) 0.8 10^3/uL (0.0-1.0); MONOCYTES % (AUTO) 6.9 %; NEUTROPHILS # (AUTO) 10.2 10^3/uL (1.5-6.6); NEUTROPHILS % (AUTO) 84.2 %; NRBC ABSOLUTE COUNT (AUTO) 0.03 x10^3/uL; NUCLEATED RED BLOOD CELLS AUTO 0.2 /100WBC; PLT - PLATELET COUNT 219 10^3/uL (130-450); RED BLOOD COUNT 4.64 10^6/uL (4.20-5.40); RED CELL DISTRIBUTION WIDTH 21.3 % (12.0-15.0); WHITE BLOOD COUNT 12.1 x10^3/uL (4.8-10.8)
[2022-05-28 21:18] LABS: PLATELET ESTIMATE, MANUAL NORMAL (130-450,000) (NORMAL); PLATELET MORPHOLOGY NORMAL APPEARANCE (NORMAL); SLIDE REVIEW? Indicated
[2022-05-28 21:19] LABS: WBC MORPHOLOGY (MULTIPLE) NORMAL APPEARANCE (NORMAL)
[2022-05-28 21:22] LABS: ALBUMIN 2.6 g/dL (3.2-5.5); ALBUMIN/GLOBULIN RATIO 0.8 (1.0-2.2); BILIRUBIN,TOTAL 7.5 mg/dL (0.2-1.0); CALCIUM 8.5 mg/dL (8.5-10.3); CREATININE 0.8 mg/dL (0.4-1.0); POTASSIUM 4.3 mmol/L (3.5-5.0); TOTAL PROTEIN 5.9 g/dL (6.7-8.2)
[2022-05-28 21:28] LABS: INR 1.5 (0.8-1.2); PT - PROTHROMBIN TIME 16.2 secs (9.9-12.6)
[2022-05-28 21:51] LABS: B. PARAPERTUSSIS- RESP PCR PAN NOT DETECTED; B. PERTUSSIS- RESP PCR PANEL NOT DETECTED; C. PNEUMONIAE- RESP PCR PANEL NOT DETECTED; CORONAVIRUS 229E-RESP PCR NOT DETECTED; CORONAVIRUS HKU1-RESP PCR NOT DETECTED; CORONAVIRUS NL63-RESP PCR NOT DETECTED; CORONAVIRUS OC43-RESP PCR NOT DETECTED; HUMAN METAPNEUMOVIRUS NOT DETECTED; INFLUENZA A- RESP PCR PANEL NOT DETECTED; INFLUENZA B - RESP PCR PANEL NOT DETECTED; M. PNEUMONIAE- RESP PCR PANEL NOT DETECTED; PARAINFLUENZA VIRUS 1 NOT DETECTED; PARAINFLUENZA VIRUS 2 NOT DETECTED; PARAINFLUENZA VIRUS 3 NOT DETECTED; PARAINFLUENZA VIRUS 4 NOT DETECTED; RHINOVIRUS/ENTEROVIRUS NOT DETECTED; RSV- RESP PCR PANEL NOT DETECTED; SARS-CoV-2 -RESP PCR PANEL NOT DETECTED
[2022-05-28 23:13] VITALS: BP 127/81
== END 2022-05-28 23:13 | disposition home or self-care (01) ==
LOC: ED 19:24
DX: K75.4 Autoimmune hepatitis (principal); R60.9 Edema, unspecified; Z20.822 Contact with and (suspected) exposure to COVID-19
CPT/HCPCS: 36415; 80053; 83690; 85025; 85610; 85651; 87633; 99283; 99284

== ENCOUNTER 2022-06-07 15:02 | Outpatient (CLI) | payer OTHER ==
--- NOTE | 2022-06-07 16:55 | DEXA Report ---
PROCEDURE: Dexa Spine and/or Hip INDICATIONS: AUTOIMMUE HEPATITIS, HIGH DOES STEROID USE TECHNIQUE: Dual energy x-ray absorptiometry (DXA) was performed on a Vaioni System. Regions measur ed are the AP Spine, femoral neck, and if needed forearm. COMPARISON: None. FINDINGS: Lumbar Spine: Bone Mineral Density 1.233 g/cm/cm,T score 0.4 Left Hip: Bone Mineral Density 1.100 g/cm/cm,T score 0.7 Left Femoral Neck: Bone Mineral Density 1.022 g/cm/cm, T score -0.1 (T score greater or equal to -1.0: NORMAL) (T score from -1.1 to -2.4: OSTEOPENIA) (T score less than or equal to -2.5 to: OSTEOPOROSIS) Impression: No osteoporosis or osteopenia of the lumbar spine or left hip. Patients with diagnosis of osteoporosis or osteopenia should have regular bone mineral density assess ment. For those eligible for Medicare, routine testing is allowed once every 2 years. Testing frequ ency can be increased for patients who have rapidly progressing disease or for those who are receivin g medical therapy to restore bone mass. Reviewed by: Trina Geiger MD on 06/07/2022 4:53 PM PDT Approved by: Trina Geiger MD on 06/07/2022 4:53 PM PDT Station ID: [id number]
== END 2022-06-07 15:03 | disposition home or self-care (01) ==
LOC: DI 15:02
DX: K75.4 Autoimmune hepatitis (principal); Z79.52 Long term (current) use of systemic steroids

== ENCOUNTER 2022-07-10 09:00 | Outpatient (CLI) | payer OTHER ==
[~2022-07-10 09:00] MED LIST: GADOBUTROL 10 MMOL/10 ML VIAL ONE
[2022-07-10] MEDS ORDERED: GADOBUTROL 10 MMOL/10 ML VIAL IVP ONE (12:00)
--- NOTE | 2022-07-12 14:12 | MRI Report ---
PROCEDURE: ABDOMEN W/WO INDICATIONS: Suspected autoimmune hepatitis. Please evaluate for cirrhosis, PSC, PVT, HCC. CONTRAST: 9.6 mL Gadavist TECHNIQUE: Coronal ultra fast SE, axial 2D spoiled GE in- and [id number]; axial breath-hold T2 fast SE. Dynam ic axial ultra fast GE during the administration of contrast; post-contrast coronal ultra fast GE or 2D spoiled GE with fat saturation from the hepatic dome to the iliac crests. Optional diffusion weig hted imaging and ADC may be performed. COMPARISON: Abdominal ultrasound 03/17/2022. MRCP same day. FINDINGS: Image quality: Adequate. Lung bases: No basal pleural effusions. Liver: Areas of abnormal T2 hyperintensity are present within the liver, confluent within the left lo be with associated volume loss. T2 hyperintensities within the right lobe appear bandlike at the uppe r posterior segment, and more reticular/lacelike elsewhere. There is persistent enhancement of these areas on delayed postcontrast images. Overall findings are suspicious for confluent fibrosis. No defi nite focal lesion suspicious for hepatocellular carcinoma identified. Solid organs: Spleen is unremarkable in size and enhancement. A 2 cm simple appearing cyst is presen t at the anterior spleen near the hilum. Gallbladder is unremarkable. Biliary system is non dilated, otherwise described in the report for same day MRCP. Pancreas is normal in morphology. No adrenal nodules. Both kidneys demonstrate normal size and enhancement, without hydronephrosis. Nodes and vessels: No retroperitoneal or mesenteric adenopathy by size criteria. Aorta and inferior vena cava are normal in size. No evidence of portal vein thrombosis identified. Bowel and peritoneum: Unenhanced bowel loops are normal in caliber. No free fluid. IMPRESSION: 1. Morphologic and signal/enhancement characteristics of the liver suspicious for confluent fibrosis. No definite focal lesion suspicious for hepatocellular carcinoma identified. 2. No evidence of portal vein thrombus identified as clinically queried. 3. Same day MRCP is dictated separately. Reviewed by: Byron Schaefer MD on 07/12/2022 2:11 PM PST Approved by: Byron Schaefer MD on 07/12/2022 2:11 PM PST Station ID: [id number]
--- NOTE | 2022-07-12 14:29 | MRI Report ---
PROCEDURE: MRCP WO INDICATIONS: Suspected autoimmune hepatitis. Please evaluate for cirrhosis, PSC, PVT, HCC. CONTRAST: Contrast was administered for the MR liver portion of the examination, dictated separately. TECHNIQUE: Coronal ultra fast SE through the abdomen, axial 2-D spoiled GE in- and [id number], and breath-hold T2 FSE with fat saturation through the biliary system and pancreas. Oblique coronal and axial thin- slice ultra fast SE, radial thick-slab ultra fast SE centered on the extrahepatic bile ducts. COMPARISON: MRI liver/abdomen same day. FINDINGS: Image quality: Adequate. Pancreas and biliary system: Intra- and extra-hepatic biliary ducts are non dilated. No definite/con vincing biliary strictures or duct irregularity. Pancreas is normal in morphology, without adjacent soft tissue edema. Pancreatic duct is normal in c aliber. Gallbladder is unremarkable. Other abdominal findings are dictated separately in the report for MR abdomen/liver same day. IMPRESSION: 1. No biliary ductal dilation or other definite findings to raise high suspicion for primary sclerosi ng cholangitis. 2. Same day MR abdomen/liver with and without contrast is dictated separately. Reviewed by: Byron Schaefer MD on 07/12/2022 2:28 PM PST Approved by: Byron Schaefer MD on 07/12/2022 2:28 PM PST Station ID: [id number]
== END 2022-07-10 09:01 | disposition home or self-care (01) ==
LOC: DI 09:00
PROVIDERS: ATTEND Internal Medicine Gastroenterology
DX: R93.2 Abnormal findings on diagnostic imaging of liver and biliary tract (principal)

== ENCOUNTER 2022-10-18 11:01 | Outpatient (CLI) | payer OTHER | END 2022-10-18 23:59 | disposition critical access hospital (66) | LOC: EMS 11:01 | DX: K92.0 Hematemesis (principal); R19.7 Diarrhea, unspecified; J02.9 Acute pharyngitis, unspecified | CPT/HCPCS: A0425; A0427 ==

== ENCOUNTER 2022-10-18 11:20 | Emergency (ER) | payer OTHER ==
[2022-10-18 12:11] LABS: BASOPHILS # (AUTO) 0.1 10^3/uL (0.0-0.1); BASOPHILS % (AUTO) 0.5 %; EOSINOPHILS # (AUTO) 0.1 10^3/uL (0.0-0.7); EOSINOPHILS % (AUTO) 0.5 %; HGB - HEMOGLOBIN 16.1 g/dL (12.0-16.0); LYMPHOCYTES # (AUTO) 0.5 10^3/uL (1.5-3.5); LYMPHOCYTES % (AUTO) 3.3 %; MEAN CORPUSCULAR HEMOGLOBIN 29.8 pg (27.0-31.0); MEAN CORPUSCULAR HGB CONC 33.5 g/dL (32.0-36.0); MEAN CORPUSCULAR VOLUME 88.9 fL (81.0-99.0); MONOCYTES # (AUTO) 0.6 10^3/uL (0.0-1.0); MONOCYTES % (AUTO) 4.1 %; NEUTROPHILS # (AUTO) 13.1 10^3/uL (1.5-6.6); NEUTROPHILS % (AUTO) 91.1 %; PLT - PLATELET COUNT 185 10^3/uL (130-450); RED CELL DISTRIBUTION WIDTH 13.9 % (12.0-15.0); WHITE BLOOD COUNT 14.4 x10^3/uL (4.8-10.8)
[2022-10-18 12:22] LABS: ALBUMIN 4.1 g/dL (3.2-5.5); BILIRUBIN,TOTAL 0.9 mg/dL (0.2-1.0); CALCIUM 9.1 mg/dL (8.5-10.3); CREATININE 0.7 mg/dL (0.4-1.0); POTASSIUM 3.5 mmol/L (3.5-5.0); TOTAL PROTEIN 8.3 g/dL (6.7-8.2)
[2022-10-18 12:24] LABS: PT - PROTHROMBIN TIME 11.5 secs (9.9-12.6)
[2022-10-18] MEDS ORDERED: ONDANSETRON 4 MG/2 ML VIAL IVP STA (12:34)
--- NOTE | 2022-10-18 12:47 | ED Physician Documentation ---
PD HPI ABD PAIN - Stated complaint Stated Complaint: ABD PX/NVD/WEAKNESS - Chief complaint Chief Complaint: Abd Pain - History obtained from History obtained from: Patient - Additional information Additional information: 22-year-old woman who was diagnosed with autoimmune hepatitis last fall. Since then she has been on a steroid taper currently 10 mg of prednisone a day and azathioprine. She had a sore throat over the weekend, got better and then today has had vomiting and diarrhea and a recurrence of the sore throat, perhaps from vomiting. She has upper abdominal pain. No known sick contacts. No recent travel. 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 : None HEENT: None Psych: None Musculoskeletal: None Derm: None - Past Surgical History Past Surgical History: No - Present Medications Home Medications: Ambulatory Orders Medication Instructions Recorded Confirmed Furosemide [Lasix] 40 mg PO DAILY 10 Days #10 tablet 05/28/22 Loperamide [Imodium] 2 mg PO QID PRN #10 cap 10/18/22 Ondansetron Odt [Zofran] 4 mg TL Q6H PRN #10 tablet 10/18/22 - Allergies Allergies/Adverse Reactions: Allergies Allergy/AdvReac Type Severity Reaction Status Date / Time No Known Drug Allergies Allergy Verified 10/18/22 11:35 - Social History Does the pt smoke?: No Smoking Status: Never smoker Does the pt drink ETOH?: No Does the pt have substance abuse?: No - Immunizations Immunizations are current?: Yes - POLST Patient has POLST: No PD ED PE NORMAL - Vitals Vital signs reviewed: Yes - General General: Alert and oriented X 3, No acute distress - HEENT HEENT: Pharynx benign - Respiratory Respiratory: No respiratory distress, Clear bilaterally - Abdomen Abdomen: Normal bowel sounds, Soft, Non tender - Neuro Neuro: Alert and oriented X 3, Normal speech Results - Vitals Vitals: Vital Signs - 24 hr 10/18/22 10/18/22 11:30 12:06 Temperature 36.8 C Heart Rate 105 H 105 H Respiratory 20 20 Rate Blood Pressure 139/88 H 131/89 H O2 Saturation 97 98 Oxygen O2 Source Room air - Labs Labs: Laboratory Tests 10/18/22 10/18/22 10/18/22 12:05 12:05 12:05 WBC 14.4 H RBC 5.40 Hgb 16.1 H Hct 48.0 H MCV 88.9 MCH 29.8 MCHC 33.5 RDW 13.9 Plt Count 185 MPV 10.0 Neut # (Auto) 13.1 H Lymph # (Auto) 0.5 L [place] # (Auto) 0.6 Eos # (Auto) 0.1 Baso # (Auto) 0.1 Absolute Nucleated RBC 0.00 Nucleated RBC % 0.0 PT 11.5 INR 1.0 Sodium 142 Potassium 3.5 Chloride 110 Carbon Dioxide 23 Anion Gap 9.0 BUN 11 Creatinine 0.7 Estimated GFR (MDRD) 125 Glucose 90 Calcium 9.1 Total Bilirubin 0.9 AST 57 H ALT 50 Alkaline Phosphatase 193 H Total Protein 8.3 H Albumin 4.1 Globulin 4.2 Albumin/Globulin Ratio 1.0 Lipase 38 Urine Color Urine Clarity Urine pH Ur Specific [place] Urine Protein Urine Glucose (UA) Urine Ketones Urine Occult Blood Urine Nitrite Urine Bilirubin Urine Urobilinogen Ur Leukocyte Esterase Ur Microscopic Review Urine Culture Comments Urine HCG, Qual Nasal Adenovirus (PCR) Nasal B. parapertussis DNA (PCR) Nasal Coronavir 229E PCR Nasal Coronavir HKU1 PCR Nasal Coronavir NL63 PCR Nasal Coronavir OC43 PCR Nasal Enterovir/Rhinovir PCR Nasal Influenza B PCR Nasal Influenza A PCR Nasal Parainfluen 1 PCR Nasal Parainfluen 2 PCR Nasal Parainfluen 3 PCR Nasal Parainfluen 4 PCR Nasal RSV (PCR) Nasal B.pertussis DNA PCR Nasal C.pneumoniae (PCR) Chadd Human Metapneumo PCR Nasal M.pneumoniae (PCR) Nasal SARS-CoV-2 (PCR) Group A Strep Rapid 10/18/22 10/18/22 10/18/22 12:12 12:12 13:43 WBC RBC Hgb Hct MCV MCH MCHC RDW Plt Count MPV Neut # (Auto) Lymph # (Auto) [place] # (Auto) Eos # (Auto) Baso # (Auto) Absolute Nucleated RBC Nucleated RBC % PT INR Sodium Potassium Chloride Carbon Dioxide Anion Gap BUN Creatinine Estimated GFR (MDRD) Glucose Calcium Total Bilirubin AST ALT Alkaline Phosphatase Total Protein Albumin Globulin Albumin/Globulin Ratio Lipase Urine Color DARK YELLOW Urine Clarity CLEAR Urine pH 6.0 Ur Specific [place] 1.025 Urine Protein NEGATIVE Urine Glucose (UA) NEGATIVE Urine Ketones TRACE Urine Occult Blood NEGATIVE Urine Nitrite NEGATIVE Urine Bilirubin NEGATIVE Urine Urobilinogen 1 (NORMAL) Ur Leukocyte Esterase NEGATIVE Ur Microscopic Review NOT INDICATED Urine Culture Comments NOT INDICATED Urine HCG, Qual NEGATIVE Nasal Adenovirus (PCR) NOT DETECTED Nasal B. parapertussis DNA (PCR) NOT DETECTED Nasal Coronavir 229E PCR NOT DETECTED Nasal Coronavir HKU1 PCR NOT DETECTED Nasal Coronavir NL63 PCR NOT DETECTED Nasal Coronavir OC43 PCR DETECTED A Nasal Enterovir/Rhinovir PCR NOT DETECTED Nasal Influenza B PCR NOT DETECTED Nasal Influenza A PCR NOT DETECTED Nasal Parainfluen 1 PCR NOT DETECTED Nasal Parainfluen 2 PCR NOT DETECTED Nasal Parainfluen 3 PCR NOT DETECTED Nasal Parainfluen 4 PCR NOT DETECTED Nasal RSV (PCR) NOT DETECTED Nasal B.pertussis DNA PCR NOT DETECTED Nasal C.pneumoniae (PCR) NOT DETECTED Chadd Human Metapneumo PCR NOT DETECTED Nasal M.pneumoniae (PCR) NOT DETECTED Nasal SARS-CoV-2 (PCR) NOT DETECTED Group A Strep Rapid Negative PD Medical Decision Making - ED course ED course: 22-year-old woman with history of autoimmune hepatitis presents with what sounds like gastroenteritis preceded by URI. She appears well with a normal exam. CBC with mild leukocytosis and elevated hemoglobin probably due to hemoconcentration. INR normal. CMP reviewed with minimal elevation in AST, otherwise were unremarkable. Urine and urine test normal/negative. Bio fire respiratory panel notable for one of the older coronaviruses, strep test negative. She felt much better after symptomatic management with IV fluids, Zofran, and Toradol. Passed a p.o. challenge. Departure - Departure Disposition: 01 Home, Self Care Clinical Impression: Vomiting, Diarrhea, Coronavirus infection Condition: Good Record reviewed to determine appropriate education?: Yes Instructions: ED Viral Syndrome, ED Nausea Vomiting Prescriptions: Loperamide [Imodium] 2 mg PO QID PRN #10 cap PRN Reason: Diarrhea Ondansetron Odt [Zofran] 4 mg TL Q6H PRN #10 tablet PRN Reason: Nausea / Vomiting Comments: Continue your current dose of prednisone and other medications. Return for new or worsening symptoms. You should be better in the next 24 to 36 hours, return if not better in that timeframe. You have one of the older coronaviruses; not covid
[2022-10-18 13:03] LABS: RAPID STREP SCREEN Negative (Negative)
[2022-10-18] MEDS ORDERED: KETOROLAC 15 MG/ML VIAL IVP STA (13:20)
[2022-10-18 13:26] LABS: B. PARAPERTUSSIS- RESP PCR PAN NOT DETECTED; B. PERTUSSIS- RESP PCR PANEL NOT DETECTED; C. PNEUMONIAE- RESP PCR PANEL NOT DETECTED; CORONAVIRUS 229E-RESP PCR NOT DETECTED; CORONAVIRUS HKU1-RESP PCR NOT DETECTED; CORONAVIRUS NL63-RESP PCR NOT DETECTED; CORONAVIRUS OC43-RESP PCR DETECTED; HUMAN METAPNEUMOVIRUS NOT DETECTED; INFLUENZA A- RESP PCR PANEL NOT DETECTED; INFLUENZA B - RESP PCR PANEL NOT DETECTED; M. PNEUMONIAE- RESP PCR PANEL NOT DETECTED; PARAINFLUENZA VIRUS 1 NOT DETECTED; PARAINFLUENZA VIRUS 2 NOT DETECTED; PARAINFLUENZA VIRUS 3 NOT DETECTED; PARAINFLUENZA VIRUS 4 NOT DETECTED; RHINOVIRUS/ENTEROVIRUS NOT DETECTED; RSV- RESP PCR PANEL NOT DETECTED; SARS-CoV-2 -RESP PCR PANEL NOT DETECTED
[2022-10-18 13:59] LABS: BILIRUBIN,URINE NEGATIVE (NEGATIVE); GLUCOSE, URINE (UA) NEGATIVE (NEGATIVE); KETONES,URINE (UA) TRACE mg/dL (NEGATIVE); LEUKOCYTE ESTERASE, URINE NEGATIVE (NEGATIVE); NITRITE,URINE NEGATIVE (NEGATIVE); OCCULT BLOOD,URINE NEGATIVE (NEGATIVE); PROTEIN,URINE NEGATIVE (NEGATIVE); UROBILINOGEN,URINE 1 (NORMAL) E.U./dL (NORMAL)
[2022-10-18 14:01] LABS: CLARITY,URINE CLEAR (CLEAR); HCG UR QUAL NEGATIVE
[2022-10-18 14:09] VITALS: BP 119/66
== END 2022-10-18 14:16 | disposition home or self-care (01) ==
LOC: EDUNIT# → ED 11:20
DX: U07.1 COVID-19 (principal); R11.10 Vomiting, unspecified; R19.7 Diarrhea, unspecified
CPT/HCPCS: 36415; 80053; 81001; 81003; 81025; 83690; 85025; 85610; 87070; 87086; 87430; 87633; 96374; 96375; 99284

== ENCOUNTER 2022-11-17 17:41 | Outpatient (CLI) | payer OTHER ==
--- NOTE | 2022-11-18 13:22 | MRI Report ---
PROCEDURE: KNEE WO - RT INDICATIONS: KNEE PAIN TECHNIQUE: Noncontrast sagittal PD fast spin echo and T2 fast spin echo with fat saturation, sagittal 3-D gradie nt sequence with fat saturation; coronal T1 spin echo and PD fast spin echo with fat saturation, and axial PD fast spin echo with fat saturation through the knee. COMPARISON: None. FINDINGS: Image quality: Excellent. Menisci: The medial and lateral menisci demonstrate normal morphology and internal signal. The meni scal root ligaments appear intact. Cruciate ligaments: The anterior and posterior cruciate ligaments appear intact. Medial structures: Significant thickening of the medial collateral ligament at its femoral insertion is seen with adjacent edema. The posterior oblique ligament, semimembranosus tendon insertions, and o blique popliteal ligament, and meniscocapsular junction appear intact. Visualized portions of the pe s anserinus tendons appear normal. No abnormal bursal fluid. Lateral structures: The lateral collateral ligament, long and short heads of the biceps femoris tend on appear intact. The popliteus tendon appears normal; the popliteofibular ligament appears intact. Iliotibial band appears normal. Anterior structures: The quadriceps and patellar tendons appear intact. Patellar alignment is wayne l. No femoral trochlear dysplasia or ventral trochlear prominence. No edema in the infrapatellar fa t pad. Bones and cartilage: Marrow edema involving medial periphery of medial femoral condyle near medial co llateral ligament insertion is seen without discrete fracture line. No other area of marrow signal ab normality.. The cartilage of the medial and lateral femorotibial compartments, as well as the patell ofemoral compartment, appears normal in thickness. Joint space: There is physiologic knee joint fluid. No De León's cyst. Normal appearing synovial pli are incidentally noted. IMPRESSION: 1. Bony contusion involving medial periphery of medial femoral condyle near MCL insertion site. No fr acture or dislocation. Articulating cartilages are intact. 2. Moderate grade partial-thickness tear involving proximal MCL at its femoral insertion. 3. The cruciate ligaments are intact. 4. No evidence of focal meniscal tear. Reviewed by: Ethan Dhillon MD on 11/18/2022 1:21 PM PDT Approved by: Ethan Dhillon MD on 11/18/2022 1:21 PM PDT Station ID: [id number]
== END 2022-11-17 17:42 | disposition home or self-care (01) ==
LOC: DI 17:41
PROVIDERS: ATTEND Student in an Organized Health Care Education/Training Program
DX: S70.11XA Contusion of right thigh, initial encounter (principal); S83.411A Sprain of medial collateral ligament of right knee, initial encounter

== ENCOUNTER 2023-04-14 22:53 | Emergency (ER) | payer OTHER ==
[2023-04-14 23:12] VITALS: BP 144/98; O2SAT 99
[2023-04-14] MEDS ORDERED: KETOROLAC 15 MG/ML VIAL IVP STA (23:27)
[2023-04-14] MEDS ORDERED: SODIUM CHLORIDE 0.9% 1,000 ML IV STA (23:27)
[2023-04-14 23:33] LABS: RAPID STREP SCREEN Negative (Negative)
[2023-04-14 23:41] LABS: BASOPHILS % (AUTO) 0.3 %; EOSINOPHILS % (AUTO) 0.5 %; HCT - HEMATOCRIT 41.8 % (37.0-47.0); HGB - HEMOGLOBIN 14.4 g/dL (12.0-16.0); LYMPHOCYTES # (AUTO) 0.6 10^3/uL (1.5-3.5); LYMPHOCYTES % (AUTO) 8.7 %; MEAN CORPUSCULAR HEMOGLOBIN 31.3 pg (27.0-31.0); MEAN CORPUSCULAR HGB CONC 34.4 g/dL (32.0-36.0); MEAN CORPUSCULAR VOLUME 90.9 fL (81.0-99.0); MEAN PLATELET VOLUME 9.7 fL (7.9-10.8); MONOCYTES # (AUTO) 0.4 10^3/uL (0.0-1.0); MONOCYTES % (AUTO) 6.2 %; NEUTROPHILS # (AUTO) 5.3 10^3/uL (1.5-6.6); NEUTROPHILS % (AUTO) 84.1 %; PLT - PLATELET COUNT 193 10^3/uL (130-450); RED CELL DISTRIBUTION WIDTH 13.6 % (12.0-15.0); WHITE BLOOD COUNT 6.3 x10^3/uL (4.8-10.8)
[2023-04-14 23:53] LABS: ALBUMIN 4.2 g/dL (3.2-5.5); ALBUMIN/GLOBULIN RATIO 1.2 (1.0-2.2); CALCIUM 9.2 mg/dL (8.5-10.3); CREATININE 0.9 mg/dL (0.4-1.0); POTASSIUM 3.4 mmol/L (3.5-5.0); TOTAL PROTEIN 7.7 g/dL (6.7-8.2)
--- NOTE | 2023-04-15 00:01 | ED Physician Documentation ---
History of Present Illness - Stated complaint Stated Complaint: DIARRHEA,FEVER - Chief complaint Chief Complaint: Fever - History obtained from History obtained from: Patient - Additonal information Additional information: 23-year-old woman with history of autoimmune hepatitis presents the ED with nonbloody, fever with Tmax 101, and sore throat today. Denies shortness of breath, cough, nausea,. Denies urinary symptoms. PD PAST MEDICAL HISTORY - Past Medical History Past Medical History: Yes Cardiovascular: None Respiratory: None Neuro: None Endocrine/Autoimmune: Other GI: GERD [employer]ESSOR: None : None HEENT: None Psych: None Musculoskeletal: None Derm: None - Past Surgical History Past Surgical History: No - Present Medications Home Medications: Ambulatory Orders Medication Instructions Recorded Confirmed predniSONE [Prednisone 21-TAB dose 5 mg PO DAILY 04/14/23 04/14/23 pack] - Allergies Allergies/Adverse Reactions: Allergies Allergy/AdvReac Type Severity Reaction Status Date / Time NSAIDS (Non-Steroidal AdvReac Unknown Verified 04/14/23 23:46 Anti-Inflamma - Social History Does the pt smoke?: No Smoking Status: Never smoker Does the pt drink ETOH?: No Does the pt have substance abuse?: No - Immunizations Immunizations are current?: Yes - POLST Patient has POLST: No PD ED PE NORMAL - Vitals Vital signs reviewed: Yes - General General: Alert and oriented X 3, No acute distress, Well developed/nourished - HEENT HEENT: Atraumatic, PERRL, EOMI, Moist mucous membranes, Pharynx benign, Other (Mild oropharyngeal erythema) - Neck Neck: Supple, no meningeal sign - Cardiac Cardiac: RRR - Respiratory Respiratory: No respiratory distress, Clear bilaterally - Abdomen Abdomen: Non tender, Non distended - Back Back: No CVA TTP - Derm Derm: Normal color, Warm and dry - Neuro Neuro: Alert and oriented X 3 - Psych Psych: Normal mood, Normal affect Results - Vitals Vitals: Vital Signs - 24 hr 04/14/23 22:56 Temperature 36.5 C Heart Rate 110 H Respiratory 18 Rate Blood Pressure 144/98 H O2 Saturation 99 Oxygen O2 Source Room air - Labs Labs: Laboratory Tests 04/14/23 04/14/23 04/14/23 23:06 23:37 23:37 WBC 6.3 RBC 4.60 Hgb 14.4 Hct 41.8 MCV 90.9 MCH 31.3 H MCHC 34.4 RDW 13.6 Plt Count 193 MPV 9.7 Neut # (Auto) 5.3 Lymph # (Auto) 0.6 L [place] # (Auto) 0.4 Eos # (Auto) 0.0 Baso # (Auto) 0.0 Absolute Nucleated RBC 0.00 Nucleated RBC % 0.0 Sodium 132 L Potassium 3.4 L Chloride 101 Carbon Dioxide 22 Anion Gap 9.0 BUN 14 Creatinine 0.9 Estimated GFR (MDRD) 92 Glucose 97 Calcium 9.2 Total Bilirubin 1.0 AST 28 ALT 25 Alkaline Phosphatase 115 Total Protein 7.7 Albumin 4.2 Globulin 3.5 Albumin/Globulin Ratio 1.2 Lipase 37 Group A Strep Rapid Negative PD Medical Decision Making - ED course ED course: 23-year-old woman with autoimmune hepatitis presented to the ED with sore throat, fever, and diarrhea for the past day, likely viral in origin. CBC, abdominal panel ordered and appear benign with mild hyponatremia and borderline low potassium. Advised patient to continue hydrating with electrolyte solution and get lots of rest. Strep test negative. PCR pending that she can follow-up on her patient health portal. Patient will make appointment with her primary care provider. Return precautions given. Departure - Departure Disposition: 01 Home, Self Care Clinical Impression: Fever, Diarrhea, Sore throat Condition: Stable Instructions: ED Diarrhea Viral Comments: You were seen in the emergency department for Diarrhea, sore throat, and fever. You most likely have a virus. Your strep test was negative. You can follow-up the results of your COVID testing and testing for other viruses on your patient health portal by making an email and password on the [employer] website.Make sure you stay well-hydrated and get lots of rest. Wear a mask around other people since you are contagious. Please follow-up with your primary care provider and return to the emergency department if you have any new or worsening symptoms or other concerns.
[2023-04-15 00:18] LABS: B. PARAPERTUSSIS- RESP PCR PAN NOT DETECTED; B. PERTUSSIS- RESP PCR PANEL NOT DETECTED; C. PNEUMONIAE- RESP PCR PANEL NOT DETECTED; CORONAVIRUS 229E-RESP PCR NOT DETECTED; CORONAVIRUS HKU1-RESP PCR NOT DETECTED; CORONAVIRUS NL63-RESP PCR NOT DETECTED; CORONAVIRUS OC43-RESP PCR NOT DETECTED; HUMAN METAPNEUMOVIRUS NOT DETECTED; INFLUENZA A- RESP PCR PANEL NOT DETECTED; INFLUENZA B - RESP PCR PANEL NOT DETECTED; M. PNEUMONIAE- RESP PCR PANEL NOT DETECTED; PARAINFLUENZA VIRUS 1 NOT DETECTED; PARAINFLUENZA VIRUS 2 NOT DETECTED; PARAINFLUENZA VIRUS 3 NOT DETECTED; PARAINFLUENZA VIRUS 4 NOT DETECTED; RHINOVIRUS/ENTEROVIRUS NOT DETECTED; RSV- RESP PCR PANEL NOT DETECTED; SARS-CoV-2 -RESP PCR PANEL NOT DETECTED
== END 2023-04-15 00:02 | disposition home or self-care (01) ==
LOC: ED 22:53
DX: R50.9 Fever, unspecified (principal); R07.0 Pain in throat; R19.7 Diarrhea, unspecified; Z20.822 Contact with and (suspected) exposure to COVID-19
CPT/HCPCS: 36415; 80053; 83690; 85025; 87070; 87430; 87633; 99283

== ENCOUNTER 2023-06-25 08:00 | Outpatient (CLI) | payer OTHER ==
[2023-06-26 09:34] LABS: CHLAMYDIA TRACHOMATIS DNA NEGATIVE (NEGATIVE); NEISSERIA GONORRHOEAE DNA NEGATIVE (NEGATIVE)
[2023-06-26 11:30] LABS: BACTERIAL VAGINOSIS DNA POSITIVE (NEGATIVE); CANDIDA GLABRATA DNA NEGATIVE (NEGATIVE); CANDIDA GROUP DNA NEGATIVE (NEGATIVE); CANDIDA KRUSEI DNA NEGATIVE (NEGATIVE); TRICHOMONAS VAGINALIS DNA POSITIVE (NEGATIVE)
== END 2023-06-25 23:59 | disposition home or self-care (01) ==
LOC: LAB.N 08:00
PROVIDERS: ATTEND Family Medicine
DX: N89.8 Other specified noninflammatory disorders of vagina (principal)
CPT/HCPCS: 81514; 87491; 87591; 87661